=== PATIENT | female | born 1990 | race African-American/Black ===

== ENCOUNTER 2022-02-05 09:02 | Emergency (ER) | payer BC, SELFPAY ==
[2022-02-05 09:08] VITALS: BP 154/99; PULSE 85; RESP 20; TEMP 36.7; O2SAT 100
--- NOTE | 2022-02-05 09:33 | ED.NEUROSD ---
HPI - Neuro Symptoms/Deficit General Chief Complaint: Neuro Symptoms/Deficit <Gwen Washington PA-C - Last Filed: 02/05/22 19:25> Stated Complaint: facial numbness <SACHA Padron Last Filed: 02/05/22 19:25> Time Seen by Provider: 02/05/22 09:07 <SACHA Padron Last Filed: 02/05/22 19:25> Source: patient <SACHA Padron Last Filed: 02/05/22 19:25> Mode of arrival: ambulatory <SACHA Padron Last Filed: 02/05/22 19:25> Limitations: no limitations <SACHA Padron Last Filed: 02/05/22 19:25> History of Present Illness HPI Narrative: Patient is a 31-year-old female who presents the ED with report of right-sided facial paralysis. Patient reports she first noticed a slight numb/tingling sensation in her right facial cheek on Sunday while she was at work. She did not think much of it. She also noticed that the right side of her tongue seemed to feel and taste different. Yesterday, she reported developing weakness in the right side of her face, inability to close right eye completely, unable to wrinkle forehead, unable to fully open right side of mouth, and lack of tears from right eye. She does note her right eye seems very dry and irritated. No redness. Symptoms persisted into this morning, which prompted her to come to the ED. Patient otherwise has been in her normal state of health for the last few days. She does note increased stress with a new upper level position at work. She denies any recent fever, chills, cough, congestion, rhinorrhea, nausea, vomiting, dysuria, hematuria, abdominal pain, chest pain, difficulty breathing, otalgia, rash. No vision changes, dysarthria, dysphagia, confusion, slurred speech, headache, dizziness, lightheadedness, syncope, weakness in arm or leg. <SACHA Padron Last Filed: 02/05/22 19:25> Related Data Allergies/Adverse Reactions: Allergies Allergy/AdvReac Type Severity Reaction Status Date / Time No Known Allergies Allergy Mild Verified 02/05/22 09:07 <Gwen Washington PA-C - Last Filed: 02/05/22 19:25> Review of Systems Review of Systems: CONSTITUTIONAL: Denies fever, chills, or sweats. EYES: Reports R eye dryness and irritation, unable to fully close R eye, decreased R eye lacrimation. Denies visual changes, redness, or discharge. ENT: Reports taste alteration of R sided tongue. Denies rhinorrhea, congestion, sore throat, tinnitus, or otalgia. CARDIOVASCULAR: Denies chest pain. RESPIRATORY: Denies cough or dyspnea. GASTROINTESTINAL: Denies abdominal pain, nausea, vomiting. GENITOURINARY: Denies dysuria or hematuria. SKIN: Denies rash or itching. MUSCULOSKELETAL: Denies back pain, joint pain. NEUROLOGIC: Reports tingling of R facial cheek, weakness/paralysis of R sided face, unable to wrinkle R forehead. Denies headache, focal weakness, dysarthria, dysphagia, confusion, slurred speech, dizziness, lightheadedness, syncope. <Gwen Washington PA-C - Last Filed: 02/05/22 19:25> All systems reviewed & are unremarkable except as noted in HPI and below <Gwen Washington PA-C - Last Filed: 02/05/22 19:25> PMFSH Past Medical History Medical History: Medical History (Updated 02/06/22 @ 00:00 by [facility]) No pertinent past medical history <Gwen Washington PA-C - Last Filed: 02/05/22 19:25> Surgical History Surgical History: Surgical History (Updated 02/05/22 @ 09:45 by Gwen Washington PA-C) No pertinent past surgical history <Gwen Washington PA-C - Last Filed: 02/05/22 19:25> Social History Social History: Social History (Updated 02/05/22 @ 09:45 by Gwen Washington PA-C) Smoking status: Never smoker <Gwen Washington PA-C - Last Filed: 02/05/22 19:25> Exam Narrative: GENERAL: Well appearing, well-nourished, non-toxic, in no acute distress. HEAD: Normocephalic, atraumatic. EYES: PERRL/EOMI, conjunctivae clear bilaterally. No nystagmus. Incomplete closure of right eye, thi
--- NOTE | 2022-02-05 10:14 | PC.NURSE ---
Eye patch applied to patient' right eye.
== END 2022-02-05 10:15 | disposition home or self-care (01) ==
LOC: ANHED 09:47
PROVIDERS: Emergency Provider Emergency Medicine
DX: G51.0 Bell's palsy (principal)
CPT/HCPCS: 99283

== ENCOUNTER 2022-04-03 09:31 | Emergency (ER) | payer BC, SELFPAY ==
[2022-04-03 09:40] VITALS: BP 135/74; PULSE 83; RESP 16; TEMP 37.6; O2SAT 100
--- NOTE | 2022-04-03 09:40 | ED.ABDPAIN ---
HPI - Abdominal Pain General Chief Complaint: Abdominal Pain Stated Complaint: abd pain Time Seen by Provider: 04/03/22 09:45 Source: patient, RN notes reviewed and old records reviewed Mode of arrival: ambulatory Limitations: no limitations History of Present Illness HPI narrative: 31-year-old female presents to the [facility] with complaints of right lower quadrant pain that has been increasing over the last 7 days. Took an at home test and states it was positive. Last menstrual period was 06 February 2022. 2 para 1 Related Data Date of Last Menstrual Period: 02/06/22 Patient : Yes Allergies Allergy/AdvReac Type Severity Reaction Status Date / Time No Known Allergies Allergy Mild Verified 02/05/22 09:07 Review of Systems Review of Systems: All systems reviewed & are unremarkable except as noted in HPI and below Constitutional: Constitutional: Reports no additional constitutional complaints, Denies chills and Denies fever(s) Eyes: Eyes: Reports no additional eye complaints ENT: Reports system reviewed and no additional complaints, except as documented Cardiovascular: Cardiovascular: Reports no additional cardiovascular complaints Respiratory: Respiratory: Reports no additional respiratory complaints Gastrointestinal: Gastrointestinal: Reports as per HPI, Reports abdominal pain (RLQ), Denies diarrhea, Reports nausea and Denies vomiting Genitourinary: Genitourinary: Reports no additional female genitourinary complaints Musculoskeletal: Musculoskeletal: Reports no additional musculoskeletal complaints Integumentary/Breasts: Skin/Breast: Reports system reviewed and no additional complaints, except as docu Neurologic: Reports system reviewed and no additional complaints, except as documented Psychiatric: Psychiatric: Reports no additional psychiatric complaints Allergic/Immunologic: Allergic/Immunologic: Reports no additional allergic/immunologic complaints [facility] Past Medical History Medical History No pertinent past medical history Surgical History Surgical History No pertinent past surgical history Social History Social History (Updated 04/03/22 @ 10:06 by Carolyn Seth APRN) Smoking status: Never smoker Gender identity (if verbalized by the patient): Female Comments At the time of my signature, I reviewed and agree with the nursing past medical, surgical, social, and family history. There is no relevant family history pertinent to the patient complaint. Exam Const: General: healthy appearing, no acute distress and alert Nutritional Appearance: well nourished Orientation/consciousness: patient oriented x3 Limitations: no limitations HENMT: Head: normal to inspection Ears: external ears normal Eyes: General: appearance normal, both eyes and all related structures Pupils: Equal, round and reactive pupils present Neck: Neck: normal visual inspection, no lymphadenopathy and no meningeal signs Chest: Chest palpation & inspection: normal inspection of the chest Resp: Effort & Inspection: normal respiratory effort and no use of accessory muscles Auscultation: clear to auscultation bilaterally, no crackles, no rales, no rhonchi and no wheezes Cardio: Rate: regular rate Rhythm: regular rhythm GI: GI Palp: Yes Soft to palpation, Yes Tenderness to palpation present (GI) (RLQ) and Yes Guarding due to palpation present (GI) (RLQ) Back/Spine/Pelvis: Cervical Spine: normal cervical lordosis Thoracic/Lumbar Spine: thoracic and lumbar spine normal to inspection Skin: General skin exam: normal color Rashes: no rashes Wounds: no wounds Neuro: General: patient oriented x3, moves all extremities, no meningeal signs and no focal motor deficits Cranial nerves: Yes Equal, round and reactive pupils present Speech: normal speech Gait exam (Neuro): Normal gait present Extre
== END 2022-04-03 09:54 | disposition short-term general hospital (02) ==
PROVIDERS: Emergency Provider Nurse Practitioner; PCP Emergency Medicine
DX: O26.891 Other specified pregnancy related conditions, first trimester (principal); R10.31 Right lower quadrant pain
CPT/HCPCS: 81003; 81025; 99212; G0463

== ENCOUNTER 2022-04-03 10:09 | Emergency (ER) | payer BC, SELFPAY ==
--- NOTE | ~2022-04-03 | US_ITS ---
EXAMINATION: US OB <=14 wk fetus w TV DATE: 04/03/2022 11:29 INDICATION: Right lower quadrant pain during first trimester TECHNIQUE: Real-time pelvic ultrasound utilizing both a transvaginal and transabdominal probe was pe rformed. The interpreting radiologist was not present for the study. COMPARISON: None. FINDINGS: The uterus measures 7.2 x 5.8 x 5.8 cm. There is an intrauterine gestational sac. A yolk sac and fet al pole are identified. The crown rump length measures 1.8 cm, which correlates with an estimated ges tational age of 8 weeks and 2 days. heart motion is identified measuring 165 beats per minute ( bpm) by M-mode Doppler. 4 mm anechoic nabothian cyst at the cervix with normal cervical length of 4.4 cm. The right ovary measures 3.5 x 3.0 x 3.0 cm. 2.9 cm thick-walled centrally anechoic corpus luteum cys t in the right ovary. The left ovary measures 2.8 x 2.6 x 1.7 cm. Vascular flow identified in both ov maciej on color Doppler. There is no free fluid in the pelvis. IMPRESSION: 1. Single living fetus with heart rate of 165 bpm. 2. Gestational age by ultrasound of 8 weeks 2 day(s) +/- 5 day(s) with ultrasound estimated date of delivery (LINDSAY) of 11/11/2022. Reviewed, dictated and finalized at location [facility]. IMPRESSION: 1. Single living fetus with heart rate of 165 bpm. 2. Gestational age by ultrasound of 8 weeks 2 day(s) +/- 5 day(s) with ultraso und estimated date of delivery (LINDSAY) of 11/11/2022.
[2022-04-03 10:16] VITALS: BP 139/90; PULSE 89; RESP 18; TEMP 37.1; O2SAT 100
[2022-04-03 10:37] LABS: Appearance Urine Clear (Clear); Bilirubin Urine Negative (Negative); Blood Urine Negative (Negative); Color Urine Yellow (Yellow); Glucose Urine UA Negative (Negative); Ketones Urine Negative (Negative); Leukocyte Esterase Ur 1+ LEU/UL (Negative); Nitrate Urine Negative (Negative); Protein Urine Negative (Negative); Urobilinogen Urine 0.2 mg/dL (<2.0); pH Urine 6.5 (5.0-9.0)
[2022-04-03 10:41] LABS: Mucus Urine Rare /lpf; RBC Urine 0-2 /hpf (0-2); Squamous Epithelial Cell Urine Many /hpf (Few); WBC Urine 0-3 /hpf
[2022-04-03 10:42] LABS: Add Urine Microscopic? YES
[2022-04-03 10:45] LABS: Basophils Percent Auto 0.3 % (0.2-1.2); Eosinophils Percent Auto 0.4 % (0-4.4); Hematocrit 40.2 % (37.0-47.0); Hemoglobin 12.6 g/dL (12.0-15.0); Immature Granulocyte Absolute 0.04 K/mm3 (0.00-0.031); Immature Granulocyte Percent A 0.4 % (0-0.5); Lymphocytes Absolute Auto 2.24 K/mm3 (0.9-3.2); Mean Corpuscular HGB Conc 31.3 g/dl (32-36); Mean Corpuscular Hemoglobin 25.2 pg (26-34); Mean Corpuscular Volume 80.4 fl (80-100); Mean Platelet Volume 10.8 fl (7.4-10.4); Monocytes Absolute Auto 0.6 K/mm3 (0.1-0.6); Monocytes Percent Auto 6.2 % (2.6-8.5); Neutrophils Absolute Auto 6.8 K/mm3 (1.3-6.7); Neutrophils Percent Auto 69.7 % (45.5-73.1); Platelet Count Result 361 k/mm3 (150-375); Red Cell Distribution Width 15.6 % (11.5-14.5); White Blood Count 9.8 K/mm3 (4.5-10.0)
[2022-04-03 11:03] LABS: Alanine Aminotransferase 10 U/L (6-35); Albumin Level 4.6 g/dL (3.5-5.1); Alkaline Phosphatase 51 U/L (38-126); Anion Gap 10 mmol/L (8-16); Aspartate Amino Transferase 20 U/L (14-36); Bilirubin,Total 0.9 mg/dL (0.2-1.3); Blood Urea Nitrogen 5 mg/dL (7-17); Calcium 9.6 mg/dL (8.4-10.2); Carbon Dioxide 25 mmol/L (22-30); Chloride 100 mmol/L (98-107); Estimated CRCL calculation 158 ml/min; Estimated Glomerular Filt Rate > 60; Glucose 101 mg/dL (65-110); Potassium 3.8 mmol/L (3.4-5.0); Sodium 135 mmol/L (137-145)
--- NOTE | 2022-04-03 14:51 | ED.ABDPAIN ---
HPI - Abdominal Pain General Chief Complaint: Abdominal Pain Stated Complaint: abd pain, 8 Time Seen by Provider: 04/03/22 10:21 Source: RN notes reviewed History of Present Illness HPI narrative: Patient presents emergency department from urgent care for abdominal pain. Patient states has been having intermittent pain in the right lower quadrant for the past 1 week. She states the pain is worse in the mornings and in the evenings and does resolve at times the pain described as cramping in nature patient gone to the urgent care today and was found to be was sent to the emergency department for rule out of ectopic . Patient states that she was last approximately 10 years ago she denies any fevers or chills chest pain shortness of breath vomiting or diarrhea but does state that she does have persistent nausea. She states that she is had no vaginal bleeding or discharge Related Data Allergies Allergy/AdvReac Type Severity Reaction Status Date / Time No Known Allergies Allergy Mild Verified 04/03/22 10:19 Review of Systems Review of Systems: Gen.: Denies fevers or chills ENT: Denies congestion Respiratory: Denies shortness of breath or cough CV: Denies chest pain or palpitations GI: see HPI reports Musculoskeletal: Denies back pain or muscle pain Neuro: Denies numbness, tingling, weakness or focal weakness Skin: Denies rash Except as documented, all other systems reviewed and negative [facility] Past Medical History Medical History No pertinent past medical history Surgical History Surgical History No pertinent past surgical history Social History Social History Smoking status: Never smoker Gender identity (if verbalized by the patient): Female Exam Narrative: APPEARANCE: No acute distress, nontoxic, resting in bed HEENT: Normocephalic, atraumatic, OMM RESPIRATORY: No respiratory distress, clear to auscultation bilaterally with no rhonchi wheezing or rales CARDIOVASCULAR: RRR s murmur ABDOMINAL: Soft nondistended mild tenderness in right lower quadrant left lower quadrant no tenderness right upper quadrant left upper quadrant no rebound or guarding MUSCULOSKELETAl: Moves all extremities. No clubbing, cyanosis or edema. NEURO: Awake and alert. Following commands, speech normal, no focal deficits SKIN:: Warm, dry. Normal Color PSYCHIATRIC: Normal affect/mood Course Course Emergency Course: Patient states they are feeling better this time patient states they are feeling better at this time Discussed with Dr. Gabriel presentation work-up agrees with plan for discharge to follow-up as an outpatient Patient states that they are feeling much better at this time. States abdominal pain has resolved. Repeat abdominal exam shows the patient's abdomen to be soft and nontender. Discussed with patient results of workup and diagnosis. Discussed need for follow-up with primary care physician, reasons to return to the emergency department in proper use of medication. Patient understands and agrees to current treatment plan. Had appytalk with patient Vital Signs Vital signs: Vital Signs Temperature 98.7 F 04/03/22 10:16 Pulse Rate 89 04/03/22 10:16 Respiratory Rate 18 04/03/22 10:16 Blood Pressure 139/90 04/03/22 10:16 Pulse Oximetry 100 04/03/22 10:16 Oxygen Delivery Room Air 04/03/22 10:16 Temperature 98.7 F 04/03/22 10:16 Pulse Rate 89 04/03/22 10:16 Respiratory Rate 18 04/03/22 10:16 Blood Pressure 139/90 04/03/22 10:16 Pulse Oximetry 100 04/03/22 10:16 Oxygen Delivery Room Air 04/03/22 10:16 MDM - Abdominal Pain Lab Data Result diagrams: 04/03/22 10:38 04/03/22 10:38 Labs: Lab Results 04/03/22 04/03/22 04/03/22 Range/Units 10:30
== END 2022-04-03 15:08 | disposition home or self-care (01) ==
PROVIDERS: Emergency Provider Emergency Medicine; PCP Emergency Medicine
DX: O26.91 Pregnancy related conditions, unspecified, first trimester (principal); R10.31 Right lower quadrant pain; Z3A.08 8 weeks gestation of pregnancy
CPT/HCPCS: 36415; 76801; 76817; 80053; 81001; 84702; 85025; 96365; 99284; J0131

== ENCOUNTER 2022-04-23 10:29 | Emergency (ER) | payer BC, SELFPAY ==
--- NOTE | ~2022-04-23 | US_ITS ---
US OB <= 14 weeks fetus DATE: 04/23/2022 12:18 INDICATION: Vaginal bleeding TECHNIQUE: Real-time imaging and Doppler analysis COMPARISON: 04/03/2022 obstetrical ultrasound FINDINGS: The uterus measures 12 Curry height, 7.5 cm AP dimension. Live single intrauterine gestation. heart rate of 185 bpm. [place]-rump length measures 4.91 cm, consistent with 11 weeks 5 days +/- 1 week estimated gestational age and LINDSAY of 11/07/2022, compared to 11/12/2022 by LMP. Approximately 8 x 20 mm fluid collection subjacent to the placenta consistent with small retroplacent al hemorrhage. Right ovary measures 3.9 x 3.3 x 2 cm. Approximately 10 x 20 mm right ovarian cyst. The left ovary is not visualized. No pelvic free fluid collection is noted. IMPRESSION: Small retroplacental hemorrhage Estimated gestational age of 11 weeks 5 days +/- 1 week; LINDSAY: 11/07/2022 Reviewed, dictated and finalized at [facility]. Reviewed, dictated and finalized at location [facility].
[2022-04-23 10:30] VITALS: BP 144/85; PULSE 86; RESP 16; TEMP 36.3; O2SAT 100
[2022-04-23 10:49] LABS: Basophils Percent Auto 0.4 % (0.2-1.2); Eosinophils Absolute Auto 0.1 K/mm3 (0-0.3); Eosinophils Percent Auto 0.6 % (0-4.4); Hematocrit 39.8 % (37.0-47.0); Hemoglobin 12.6 g/dL (12.0-15.0); Immature Granulocyte Absolute 0.03 K/mm3 (0.00-0.031); Immature Granulocyte Percent A 0.3 % (0-0.5); Lymphocytes Absolute Auto 2.43 K/mm3 (0.9-3.2); Lymphocytes Percent Auto 25.6 % (18.3-44.2); Mean Corpuscular HGB Conc 31.7 g/dl (32-36); Mean Corpuscular Hemoglobin 25.1 pg (26-34); Mean Corpuscular Volume 79.4 fl (80-100); Mean Platelet Volume 10.9 fl (7.4-10.4); Monocytes Absolute Auto 0.6 K/mm3 (0.1-0.6); Monocytes Percent Auto 6.2 % (2.6-8.5); Neutrophils Absolute Auto 6.4 K/mm3 (1.3-6.7); Neutrophils Percent Auto 66.9 % (45.5-73.1); Platelet Count Result 335 k/mm3 (150-375); Red Blood Count 5.01 M/mm3 (4.2-5.4); Red Cell Distribution Width 15.2 % (11.5-14.5); White Blood Count 9.5 K/mm3 (4.5-10.0)
--- NOTE | 2022-04-23 12:21 | ED.PREGNANCY ---
HPI - General Chief complaint: Vaginal Bleeding Stated complaint: 11 weeks and spotting Time Seen by Provider: 04/23/22 11:46 Source: patient Mode of arrival: ambulatory Limitations: no limitations History of Present Illness HPI Narrative: This is a 31-year-old , 11 weeks , that presents to the emergency department for spotting. Reports yesterday she was having some pelvic cramping. Today she noted some pink spotting. She does not have an OB yet this . She has had an ultrasound in the ER which showed an intrauterine . Denies fevers or dysuria. Related Data Allergies Allergy/AdvReac Type Severity Reaction Status Date / Time No Known Allergies Allergy Mild Verified 04/23/22 11:43 Review of Systems Review of Systems: CONSTITUTIONAL: Denies fever GASTROINTESTINAL: Denies nausea, vomiting GENITOURINARY: Denies dysuria All systems reviewed & are unremarkable except as noted in HPI and below PMFSH Past Medical History Medical History No pertinent past medical history Surgical History Surgical History No pertinent past surgical history Social History Social History Smoking status: Never smoker Gender identity (if verbalized by the patient): Female Exam Narrative: GENERAL: Well-appearing, well-nourished, and in no acute distress. HEAD: Normocephalic, atraumatic. EYES: EOMI. CHEST: Clear to auscultation. No respiratory distress. No wheezes rales or rhonchi HEART: Regular rate and rhythm. No murmur heard. Normal peripheral pulses. ABDOMEN: Soft, nontender, nondistended, normal active bowel sounds. EXTREMITIES: Normal range of motion. No edema. SKIN: Warm, dry, no rash. NEURO: No focal deficits. Alert and oriented x3. PSYCH: Normal mood and affect PELVIC: Normal external genitalia. Small amount of pink discharge in the vaginal vault. Cervix is normal-appearing, closed Course Vital Signs Vital signs: Vital Signs Temperature 97.4 F L 04/23/22 10:30 Pulse Rate 86 04/23/22 10:30 Respiratory Rate 16 04/23/22 10:30 Blood Pressure 144/85 H 04/23/22 10:30 Pulse Oximetry 100 04/23/22 10:30 Oxygen Delivery Room Air 04/23/22 10:30 Temperature 97.4 F L 04/23/22 10:30 Pulse Rate 86 04/23/22 10:30 Respiratory Rate 16 04/23/22 10:30 Blood Pressure 144/85 H 04/23/22 10:30 Pulse Oximetry 100 04/23/22 10:30 Oxygen Delivery Room Air 04/23/22 10:30 MDM - OB/Uterine Contractions MDM Narrative Medical decision making narrative: Patient presents to the emergency department for vaginal bleeding, 11 weeks . Her vitals are stable. Hemoglobin is 12.6. Patient is O+. Small amount of pink discharge noted in the vaginal vault. ultrasound shows a live intrauterine gestation at 11 weeks and 5 days. Also shows a small retroplacental hemorrhage. Patient was updated on case findings. Instructed she should have follow-up with OB. She does report she is got a call in the morning to make an appointment. Patient is stable and felt appropriate for further outpatient evaluation. She was given warnings to return to the ER Lab Data Attestation: I reviewed the patient's lab results. Result diagrams: 04/23/22 10:41 Labs: Lab Results 04/23/22 04/23/22 04/23/22 Range/Units 10:41 10:41 10:41 WBC 9.5 (4.5-10.0) K/mm3 RBC 5.01 (4.2-5.4) M/mm3 Hgb 12.6 (12.0-15.0) g/dL Hct 39.8 (37.0-47.0) % MCV 79.4 L (80-100) fl MCH 25.1 L (26-34) pg MCHC 31.7 L (32-36) g/dl RDW 15.2 H (11.5-14.5) % Plt Count 335 (150-375) k/mm3 MPV 10.9 H (7.4-10.4) fl Immature Gran % (Auto) 0.3 (0-0.5) % Neut % (Auto) 66.9 (45.5-73.1) % Lymph % (Auto) 25.6 (18.3-44.2) % [place] % (Auto) 6.2 (2.6-8.5) % Eos % (Au
[2022-04-23 14:08] VITALS: BP 130/84; PULSE 86; RESP 16; O2SAT 99
== END 2022-04-23 14:08 | disposition home or self-care (01) ==
PROVIDERS: Physician Assistant; Emergency Provider Emergency Medicine
DX: O43.891 Other placental disorders, first trimester (principal); Z3A.11 11 weeks gestation of pregnancy
CPT/HCPCS: 36415; 76801; 84702; 85025; 85461; 99284